=== PATIENT | female | born 1995 | race Caucasian/White ===

== ENCOUNTER 2018-03-25 00:34 | Emergency (ER) | payer MEDICAID ==
[~2018-03-25] VITALS: Ht 149.9 cm; Wt 84.0 kg
[2018-03-25] MEDS ORDERED: MAGNESIUM 2 G PREMIX 50 ML IV STA (00:52)
[2018-03-25] MEDS ORDERED: METHYLPREDNISOLONE SOD SUCC 125 MG/2 ML VIAL IV STA (00:52)
[2018-03-25] MEDS ORDERED: IPRATROPIUM BROMIDE (0.02%) 0.5MG/2.5ML NEB HHN STA (00:52)
[2018-03-25] MEDS ORDERED: ALBUTEROL (0.083%) 2.5MG/3ML NEB HHN STA (00:52)
[2018-03-25] MEDS ORDERED: SODIUM CHLORIDE 0.9% 1,000 ML IV ONE (01:00)
[2018-03-25 04:07] VITALS: BP 117/70
== END 2018-03-25 04:07 | disposition home or self-care (01) ==
LOC: ER 00:34
DX: J45.901 Unspecified asthma with (acute) exacerbation (principal); R00.0 Tachycardia, unspecified
CPT/HCPCS: 71045; 94640; 96365; 96366; 96375; 99285; J2930; J3475; J7030; J7611